=== PATIENT | female | born 1995 | race Hispanic/Latino ===

== ENCOUNTER 2019-04-18 11:39 | Emergency (ER) | payer SELFPAY ==
--- NOTE | 2019-04-18 11:57 | ED.URI ---
HPI - URI/Sore Throat General Chief Complaint: Upper Respiratory Infection Stated Complaint: Lump inside throat Time Seen by Provider: 04/18/19 11:58 Source: patient and RN notes reviewed History of Present Illness HPI Narrative: Patient is a 23-year-old female that presents the urgent care with complaints of lump in the throat/sore throat radiating to the right ear. Patient states that it started 3 days ago and she has been using Vicks vapor cool. Patient states that it now hurts to swallow. Denies any known fever, chills, nausea, vomiting. No other acute complaints. No acute distress noted. Patient had a plan of care. Related Data Allergies Allergy/AdvReac Type Severity Reaction Status Date / Time No Known Allergies Allergy Verified 04/18/19 12:05 Review of Systems Review of Systems: Narrative: CONSTITUTIONAL: Denies fever, chills, or sweats. EYES: Denies visual changes, redness, or discharge. ENT: Reports of sore throat and swelling with right otalgia CARDIOVASCULAR: Denies chest pain, palpitations, or edema. RESPIRATORY: Denies cough or dyspnea. GASTROINTESTINAL: Denies abdominal pain, nausea, vomiting, or diarrhea. GENITOURINARY: Denies dysuria or hematuria. SKIN: Denies rash or itching. MUSCULOSKELETAL: Denies back pain, joint pain, or myalgia. NEUROLOGIC: Denies headache, numbness, or weakness. All other systems reviewed are negative, except as documented in HPI. [facility] Past Medical History Medical History (Updated 04/18/19 @ 12:18 by ROSA ELENA Hinojosa) History of asthma Surgical History Surgical History (Updated 12/25/18 @ 21:17 by Leslie Tinsley PA-C) Hx of cholecystectomy Social History Social History (Updated 12/25/18 @ 21:17 by Leslie Tinsley PA-C) Smoking status: Never smoker Gender identity (if verbalized by the patient): Female Comments At the time of my signature, I reviewed and agree with the nursing past medical, surgical, social, and family history. There is no relevant family history pertinent to the patient complaint. Exam Narrative: Exam Narrative: GENERAL: This is a well-nourished, well-developed patient, in no apparent distress. HEAD: normocephalic, atraumatic. EYES: PERRL. Sclera clear/white. Vision is grossly intact. EARS: External ears normal, auditory canals clear and without drainage, TMs normal without perforation. Hearing grossly intact. NOSE: External nose normal with no obvious nasal discharge, nares without redness, no rhinorrhea. THROAT: Mucous membranes moist, moderate erythema to the posterior oropharynx with mild to moderate right tonsillar edema without obvious abscess, normal airway NECK: Neck supple, tender right mild submandibular lymphadenopathy CARDIOVASCULAR: Regular rate and rhythm without murmurs, gallops, or rubs. RESPIRATORY: Clear to auscultation. Breath sounds equal bilaterally. No wheezes, rales, or rhonchi. SKIN: warm, intact with no suspicious lesions or rash, good texture and turgor. NEURO: awake, alert, and oriented to person, place and time. There were no obvious focal neurologic abnormalities. EXTREMITIES: No clubbing, cyanosis, or edema. Course Vital Signs Vital signs: Vital Signs Temperature 98.3 F 04/18/19 11:58 Pulse Rate 88 04/18/19 11:58 Respiratory Rate 16 04/18/19 11:58 Blood Pressure 130/75 04/18/19 11:58 Pulse Oximetry 99 04/18/19 11:58 Temperature 98.3 F 04/18/19 11:58 Pulse Rate 88 04/18/19 11:58 Respiratory Rate 16 04/18/19 11:58 Blood Pressure 130/75 04/18/19 11:58 Pulse Oximetry 99 04/18/19 11:58 Reviewed MDM - URI/Sore Throat MDM Narrative Medical decision making narrative: Reviewed lab results with the patient. Aware that strep swab was negative. Educated her on culture we will call within 72 hours if culture was positive. However, patient will be covered for tonsillitis and should complete the antibiotic regimen as prescribed. Make sure to eat and drink with the medication
[2019-04-18 11:58] VITALS: BP 130/75; PULSE 88; RESP 16; TEMP 36.8; O2SAT 99
== END 2019-04-18 12:22 | disposition home or self-care (01) ==
PROVIDERS: Emergency Provider Nurse Practitioner Family
DX: J03.90 Acute tonsillitis, unspecified (principal); J45.909 Unspecified asthma, uncomplicated
CPT/HCPCS: 87081; 87880; 99213; G0463

== ENCOUNTER 2023-04-17 12:09 | Emergency (ER) | payer OTHER, SELFPAY ==
[2023-04-17 12:27] VITALS: BP 133/87; PULSE 101; RESP 16; TEMP 38.9; O2SAT 98
--- NOTE | 2023-04-17 12:49 | ED.GENADULT ---
HPI - General Adult General Chief complaint: Nausea/Vomiting/Diarrhea Stated complaint: Vomiting/Diarrhea Time Seen by Provider: 04/17/23 12:45 Source: patient and RN notes reviewed Mode of arrival: ambulatory Limitations: no limitations History of Present Illness HPI narrative: 27-year-old female presented for complaint of vomiting x2 days with headache, fever/chills, cough, nasal congestion, and decreased appetite. endorses fever up to 103.6 last night. States she is unable to keep food or fluids down. Taking tylenol. Denies shortness of breath, wheezing, diarrhea or lethargy. Related Data Home Medications Medication Instructions Recorded Confirmed metformin 500 mg tablet 500 mg PO DAILY 04/17/23 04/17/23 Allergies Allergy/AdvReac Type Severity Reaction Status Date / Time No Known Allergies Allergy Verified 04/17/23 12:16 Review of Systems Review of Systems: CONSTITUTIONAL: Endorses malaise, chills, sweats, fever EYES: Denies visual changes, redness, or discharge ENT: Reports rhinorrhea, congestion, sore throat CARDIOVASCULAR: Denies chest pain, palpitations, edema RESPIRATORY: Reports cough, post nasal drainage. Denies dyspnea GASTROINTESTINAL: Denies abdominal pain, Reports nausea, vomiting SKIN: Denies rash or itching MUSCULOSKELETAL: Endorses myalgia NEUROLOGIC: reports headache PMFSH Past Medical History Medical History History of asthma Surgical History Surgical History Hx of cholecystectomy Social History Social History Smoking status: Never smoker Gender identity (if verbalized by the patient): Female Exam Narrative: GENERAL: Ill-appearing, nontoxic no acute distress. EYES: PERRLA, conjunctivae clear ENT: Mucous membranes moist. TMs pearly rajan with dull light reflex bilaterally; no tragal tenderness. Oropharynx erythematous without lesions or exudate, no drooling, no hoarseness, no trismus, uvula midline. No tripod positioning, muffled voice, soft palate or pharyngeal wall bulging NECK: Supple. No lymphadenopathy CHEST: Clear to auscultation, breath sounds equal. No wheezing, rhonchi, rales, or stridor. No respiratory distress, speaks in full sentences. Frequent nonproductive cough. HEART: Regular rate and rhythm. No murmur heard. SKIN: Warm, dry, no rash. NEURO: Alert and oriented x3. PSYCH: Normal mood and affect Course Course Emergency Course: Patient is aware of diagnosis, understands and agrees to treatment plan. Anticipatory guidance given. Patient agrees to follow-up as directed and is aware of reasons to seek care at the emergency department. Portions of this record may have been created with voice recognition software Level of Care: Express Care Visit Vital Signs Vital signs: Vital Signs Temperature 102.0 F H 04/17/23 12:27 Pulse Rate 101 H 04/17/23 12:27 Respiratory Rate 16 04/17/23 12:27 Blood Pressure 133/87 04/17/23 12:27 Pulse Oximetry 98 04/17/23 12:27 Oxygen Delivery Room Air 04/17/23 12:27 Temperature 99.4 F 04/17/23 13:15 Pulse Rate 101 H 04/17/23 12:27 Respiratory Rate 16 04/17/23 12:27 Blood Pressure 133/87 04/17/23 12:27 Pulse Oximetry 98 04/17/23 12:27 Oxygen Delivery Room Air 04/17/23 12:35 reviewed Medical Decision Making MDM Narrative Medical decision making narrative: influenza positive. Results reviewed with patient. Pt had emesis while in clinic, advised ER if she does not improve within 24 hours. Given Zofran and Motrin in clinic. Temp recheck 100.4, and tolerated ice chips and water. Discussed physical exam findings and reviewed Rx's. Advised supportive measures and signs/symptoms to go to the ER at length. Pt is appropriate for outpt treatment and f/u. Differential Diagnosis Differential Diagnosis: Influenza,
[2023-04-17] MEDS: ONDANSETRON HCL ODT 4 MG TABLET SUBLINGUAL (12:56)
[2023-04-17 13:01] VITALS: TEMP 38.8
[2023-04-17] MEDS: IBUPROFEN 400 MG TABLET 800 MG PO (13:01)
[2023-04-17 13:15] VITALS: TEMP 37.4
[2023-04-17 13:19] VITALS: TEMP 37.4
== END 2023-04-17 13:19 | disposition home or self-care (01) ==
PROVIDERS: Emergency Provider Nurse Practitioner Family
DX: J11.1 Influenza due to unidentified influenza virus with other respiratory manifestations (principal); J45.909 Unspecified asthma, uncomplicated; Z79.84 Long term (current) use of oral hypoglycemic drugs; Z20.822 Contact with and (suspected) exposure to COVID-19
CPT/HCPCS: 87426; 87804; 99213; A9270; G0463

== ENCOUNTER 2024-11-27 12:36 | Emergency (ER) | payer SELFPAY ==
--- NOTE | ~2024-11-27 | XR_ITS ---
EXAMINATION: XR shoulder RT min 2V, 11/27/2024 13:02 CDT HISTORY: RT upper arm pain 2x days after serving volleyball, felt pop COMPARISON: No comparisons available. Findings: No acute fracture or malalignment. No significant degenerative changes. Soft tissues unremarkable. Impression: No acute fracture or malalignment. Reviewed, dictated and finalized at location P. Impression: No acute fracture or malalignment.
[2024-11-27 12:44] VITALS: BP 130/77; PULSE 86; RESP 18; TEMP 36.3; O2SAT 99
--- NOTE | 2024-11-27 12:45 | ED_ITS ---
HPI - Extremity Injury (Upper) General Chief Complaint: Extremity Injury, Upper Stated Complaint: Right Shoulder/Arm Pain Time Seen by Provider: 11/27/24 12:51 Source: patient, RN notes reviewed and old records reviewed Mode of arrival: ambulatory Limitations: no limitations History of Present Illness HPI narrative: 29 year old female presents to [facility] care with complaints of serving overhead at volleyball game on Sunday and felt a pop in her upper right arm with lump noted to her upper arm and painful palpation. Patient reports when she extends her arm outward in supination the pain is increased and shoots up her arm.The patient reports that when she holds arm close to her body it hurts less.Patient also states some pain at he AC joint area of right shouder. Patient reports that she has been taking Tylenol and has applied ice to her right upper arm. MD complaint: injury to: right, shoulder and arm (upper arm) Onset (ago): day(s) (2) Other injuries: none Handedness: right Place: other Severity scale (1-10): 8 Exacerbating factors: movement of extremity Treatments prior to arrival: cold therapy and other (Tylenol) Related Data Home Medications ?Medication ?Instructions ?Recorded ?Confirmed ?Last Taken ?Type metformin 500 mg tablet 500 mg PO DAILY 04/17/2301/28 Unknown History Allergies Allergy/AdvReac Type Severity Reaction Status Date / Time No Known Allergies Allergy Verified 11/27/24 12:39 Review of Systems Review of Systems: CONSTITUTIONAL: Denies fever, chills, or sweats. EYES: Denies visual changes, redness, or discharge. ENT: Denies rhinorrhea, congestion, sore throat, or otalgia. CARDIOVASCULAR: Denies chest pain, palpitations, or edema. RESPIRATORY: Denies cough or dyspnea. GASTROINTESTINAL: Denies abdominal pain, nausea, vomiting, or diarrhea. GENITOURINARY: Denies dysuria or hematuria. SKIN: Denies rash or itching. MUSCULOSKELETAL: Denies back pain,positive for pain in the right upper arm with raised area and pain to AC joint right shoulder, or myalgia. NEUROLOGIC: Denies headache, numbness, or weakness. PSYCHIATRIC: Denies anxiety or depression. All systems reviewed & are unremarkable except as noted in HPI and below PMFSH Past Medical History Medical History PCOS (polycystic ovarian syndrome) History of asthma Surgical History Surgical History Hx of cholecystectomy Social History Social History Smoking status: Never smoker Gender identity (if verbalized by the patient): Female Comments At time of signature, agree with nursing past medical, surgical, social and family history. There is no relevant family history pertinent to the presenting complaint Exam Narrative: GENERAL: Well-appearing, well-nourished, obese and in some acute distress. HEAD: Normocephalic, atraumatic. EYES: PERRLA and EOMI. ENT: Nares clear, no rhinorrhea or epistaxis. Mucous membranes moist.TM's normal with throat pink with no swelling or exudates. NECK: Supple. no lymphadenopathy CHEST: Clear to auscultation. No respiratory distress.SAO2 99% on room air HEART: Regular rate and rhythm. No murmur heard. Normal peripheral pulses. ABDOMEN: Soft, nontender, nondistended, normal active bowel sounds. EXTREMITIES: Normal range of motion. No edema.Exception noted to pain to right upper arm with palpable swelling and pain noted, Increased pain when patient extends her right arm with pain described as being sharp.Reports some pain to AC joint area of right shoulder also but not as painful as right upper arm. SKIN: Warm, dry, no rash. NEURO: No focal deficits. Alert and oriented x3. Course Course Emergency Course: Patient is aware of diagnosis, understands and agrees to treatment plan.? Anticipatory guidance given.? Patient agrees to follow-up as directed and is aware of reasons to seek care at the emergency department. Portions of this record may have been created with voice recognition software Level of Care: Express Care Visit Vital Signs Vital signs: Vital Signs Temperature 36.3 C L 11/27/24 12:44 Pulse Rate 86 11/27/24 12:44 Respiratory Rate 18 11/27/24 12:44 Blood Pressure 130/77 11/27/24 12:44 Pulse Oximetry 99 11/27/24 12:44 Oxygen Delivery Room Air 11/27/24 12:44 Temperature 36.3 C L 11/27/24 12:44 Pulse Rate 86 11/27/24 12:44 Respiratory Rate 18 11/27/24 12:44 Blood Pressure 130/77 11/27/24 12:44 Pulse Oximetry 99 11/27/24 12:44 Oxygen Delivery Room Air 11/27/24 12:44 Reviewed MDM - Extremity Injury (Upper) Differential Diagnosis Differential diagnosis: Likely other (right shouler strain, bicep tendon injury, tendonitis, tear of bicep tendon) Medical Records Attestation: I reviewed the patient's medical records. Imaging Data Attestation: I personally reviewed and interpreted this imaging study as follows: My impression: no acute fracture or mal-alignment Radiologist's impression: [address] [place] [address] XRay Report Signed Patient: Jeanne Mata : 1995 MR#: [id number] Age: 29 Acct:[id number] Loc: [facility] ADM Date: 11/27/[address]: Ordering Physician: Maryuri Bain APRN Date of Service: 11/27/24 Procedure(s): XR shoulder RT min 2V Accession Number(s): [id number] cc: Madan, Eliane SALDAÑA; Maryuri Bain APRN~ EXAMINATION: XR shoulder RT min 2V, 11/27/2024 13:02 CDT HISTORY: RT upper arm pain 2x days after serving volleyball, felt pop COMPARISON: No comparisons available. Findings: No acute fracture or malalignment. No significant degenerative changes. Soft tissues unremarkable. Impression: No acute fracture or malalignment. Reviewed, dictated and finalized at location P. Please be advised this is a medical document. It is intended for [id number] communication. It is written in medical language and may contain unfamiliar abbreviations or verbiage. Medical documents are intended to carry relevant information, facts as evident, and the clinical opinion of the practitioner at the time of the encounter. This report may have been done utilizing a voice recognition system. Attempts have been made to correct errors. However, there may be uncorrected grammatical, spelling, and recognition errors present. The file time of this note does not necessarily represent the time of service. Dictated By: Bonifacio Malcolm MD 11/27/24 1314 Signed By: <Electronically signed by Bonifacio Malcolm MD in OV> Critical Care Time Critical Care Time Critical Care Time: No Discharge Plan Discharge Clinical Impression: Pain in right upper arm, Biceps tendinitis of right shoulder Patient Disposition: Home Condition: Stable Instructions: Antibiotic Form, Arm Pain (ED), Biceps Tenodesis (DC) Additional Instructions: Sling to right arm Ibuprofen regularly for the next 2-3 days for the inflammation 400 mg alternate with Tylenol 2 tabs 650 mg every 4 hours for pain control. Follow-up with orthopedic surgeon as recommended see Dr. Alva watermelon inspector orthopedic physician call [phone] to set up appointment Follow-up with PCP if further problems or concerns Ice to the area 20-30 minutes 4-6 times a day If your symptoms persist, change or worsen significantly before you can contact your personal physician then please, without delay, go to the emergency department for further evaluation. Follow-up with PCP in 7-10 days or sooner if needed Follow up with PCP soon in regards to your blood pressure which is elevated above threshold for referral. Blood pressure above 120/80 may indicate pre- hypertension. 130/77 Patient Language: Albanian Prescriptions: New prednisone 20 mg tablet 40 mg PO DAILY Qty: 10 0RF Rx Instructions: take with food No Action metformin 500 mg tablet 500 mg PO DAILY Follow-up/Referrals: Madan,PIOTR Del [place] [Primary Care Provider, Unknown] Luis Alva MD [Physician, Orthopedics] - 3 Days Referral Note: serving volleyball on Sunday evening and felt pop in right upper arm, Has swelling and pain to mid right upper arm. Time of Disposition: 13:40 [place] Coma Scale Eyes: Open Verbal: Oriented and Alert Motor: Follows Commands Padmini Coma Total Score: 15
== END 2024-11-27 13:50 | disposition home or self-care (01) ==
PROVIDERS: Emergency Provider Registered Nurse; PCP Physician Assistant
DX: M79.621 Pain in right upper arm (principal); M75.21 Bicipital tendinitis, right shoulder; E28.2 Polycystic ovarian syndrome; J45.909 Unspecified asthma, uncomplicated
CPT/HCPCS: 73030; 99213; A4565; G0463